=== PATIENT | male | born 1955 | race Caucasian/White ===

== ENCOUNTER 2018-04-03 18:10 | Emergency (ER) | payer OTHER ==
[~2018-04-03] VITALS: Ht 177.8 cm; Wt 122.7 kg
[~2018-04-03 18:10] MED LIST: COUMADIN5 MG PO; Combivent IH; HABITROL,NICODE21 MG TD; Mevacor PO; NORVASC10 MG PO; TRICOR PO; WELLBUTRIN SR150 MG PO; ZESTRIL,PRINIVI40 M1 PO
[2018-04-03 19:24] LABS: HEMATOCRIT 42.6 % (38.0-50.0); HEMOGLOBIN 15.1 G/DL (12.5-16.6); MCH 38.2 PG (29.0-34.0); MCHC 35.4 G/DL (30.0-36.0); MCV 107.8 FL (86-99); PLATELET COUNT 113 K/uL (156-360); RBC DIS.WIDTH-CV 13.2 % (11.8-14.6); RBC DIS.WIDTH-SD 52.6 % (39-53); RED BLOOD COUNT 3.95 M/uL (4.00-5.50)
[2018-04-03 19:32] LABS: INTER. NORMALIZED RATIO 1.8
[2018-04-03 19:34] LABS: CHLORIDE 102 mEq/L (99-109); POTASSIUM 4.6 mEq/L (3.7-5.4); SODIUM 137 mEq/L (136-147)
[2018-04-03 19:36] LABS: GLUCOSE 160 mg/dL (70-99)
[2018-04-03 19:39] LABS: CREATININE 1.1 mg/dL (0.6-1.3); GFR ESTIMATE (CALCULATED) > 59 mL/min/ (58.99-99999)
[2018-04-03 19:40] LABS: UREA NITROGEN (BUN) 23 mg/dL (9-23)
[2018-04-03 19:45] LABS: TROP-I INTERPRETATION NEGATIVE; TROPONIN-I < 0.01 ng/mL (0.0-0.30)
[2018-04-03] MEDS ORDERED: PREDNISONE50 MG PO (22:51)
[2018-04-03 23:31] VITALS: BP 149/100
== END 2018-04-03 23:31 | disposition home or self-care (01) ==
LOC: EME 18:10
PROVIDERS: Emergency Medicine
DX: J44.1 Chronic obstructive pulmonary disease with (acute) exacerbation (principal); R00.0 Tachycardia, unspecified; R94.31 Abnormal electrocardiogram [ECG] [EKG]; I25.10 Atherosclerotic heart disease of native coronary artery without angina pectoris; K76.0 Fatty (change of) liver, not elsewhere classified; I10 Essential (primary) hypertension; E78.5 Hyperlipidemia, unspecified; Z79.01 Long term (current) use of anticoagulants; Z87.39 Personal history of other diseases of the musculoskeletal system and connective tissue; Z86.69 Personal history of other diseases of the nervous system and sense organs; Z86.711 Personal history of pulmonary embolism; Z86.718 Personal history of other venous thrombosis and embolism; Z96.659 Presence of unspecified artificial knee joint; Z95.828 Presence of other vascular implants and grafts
CPT/HCPCS: 71046; 71275; 80048; 84484; 85027; 85610; 93005; 94640; 99281; 99284; J7512

== ENCOUNTER 2018-04-05 12:14 | Inpatient (IN) | payer OTHER ==
[~2018-04-05] VITALS: Ht 175.3 cm; Wt 123.9 kg
[~2018-04-05 12:14] MED LIST changes: +PREDNISONE50 MG PO
[2018-04-05 12:49] LABS: HEMATOCRIT 40.3 % (38.0-50.0); HEMOGLOBIN 14.2 G/DL (12.5-16.6); MCH 38.3 PG (29.0-34.0); MCHC 35.2 G/DL (30.0-36.0); MCV 108.6 FL (86-99); PLATELET COUNT 93 K/uL (156-360); RBC DIS.WIDTH-CV 13.5 % (11.8-14.6); RBC DIS.WIDTH-SD 53.7 % (39-53); RED BLOOD COUNT 3.71 M/uL (4.00-5.50); WHITE BLOOD COUNT 16.3 K/uL (4.1-10.2)
[2018-04-05 12:57] LABS: CHLORIDE 99 mEq/L (99-109); POTASSIUM 4.3 mEq/L (3.7-5.4); SODIUM 133 mEq/L (136-147)
[2018-04-05 12:59] LABS: GLUCOSE 176 mg/dL (70-99)
[2018-04-05 13:03] LABS: GFR ESTIMATE (CALCULATED) 47 mL/min/ (58.99-99999)
[2018-04-05 13:04] LABS: CREATININE 1.6 mg/dL (0.6-1.3); INTER. NORMALIZED RATIO 1.7; UREA NITROGEN (BUN) 46 mg/dL (9-23)
[2018-04-05 13:10] LABS: TROP-I INTERPRETATION NEGATIVE; TROPONIN-I 0.03 ng/mL (0.0-0.30)
[2018-04-05] MEDS ORDERED: WARFARIN SODIU7.5 MG PO (15:21)
[2018-04-05] MEDS ORDERED: SPIRONOLACTONE50 MG PO (15:21)
[2018-04-05] MEDS ORDERED: HYDROCODON-ACE1 EAC7 PO (15:22)
[2018-04-05] MEDS ORDERED: SIMVASTATIN40 MG PO (15:22)
[2018-04-05] MEDS ORDERED: TYLENOL REGULA325 MG PO (15:23)
[2018-04-05 18:44] LABS: FOLIC ACID (FOLATE) 8.9 NG/ML (5.0-22.0)
[2018-04-05 19:59] VITALS: BP 140/67
[2018-04-05 22:01] LABS: APPEARANCE CLEAR ((CLEAR)); BILIRUBIN NEGATIVE; BLOOD MODERATE; COLOR YELLOW ((YELLOW)); GLUCOSE (STRIP) NEGATIVE; KETONES NEGATIVE; LEUKOCYTES NEGATIVE; NITRITE NEGATIVE; PROTEIN (STRIP) NEGATIVE; SPECIFIC GRAVITY 1.016 (1.000-1.030)
[2018-04-05 22:27] LABS: WHITE BLOOD CELLS 0-5 /HPF (0-5)
[2018-04-05 22:29] LABS: BACTERIA RARE /HPF; EPITHELIAL CELLS NONE SEEN /HPF; HYALINE CASTS 0-5 /LPF; MUCUS TRACE /LPF; UCUL ADDED? NO
[2018-04-06] VITALS (7 sets, daily range): BP systolic 126–159; BP diastolic 63–77
[2018-04-06 05:53] LABS: BASOPHIL (%) 0.1 % (0-1); EOSINOPHIL (%) 0.1 % (0-5); HEMATOCRIT 33.1 % (38.0-50.0); HEMOGLOBIN 11.4 G/DL (12.5-16.6); IMMATURE GRANULOCYTE (%) 0.7 % (0.0-0.7); LYMPHOCYTE (%) 17.2 % (15-42); MCH 37.1 PG (29.0-34.0); MCHC 34.4 G/DL (30.0-36.0); MCV 107.8 FL (86-99); MONOCYTE (%) 6.9 % (3-12); MONOCYTE COUNT 0.8 K/uL (0-0.8); NEUTROPHIL COUNT 8.8 K/uL (1.8-6.4); PLATELET COUNT 87 K/uL (156-360); RBC DIS.WIDTH-CV 13.5 % (11.8-14.6); RBC DIS.WIDTH-SD 52.6 % (39-53); RED BLOOD COUNT 3.07 M/uL (4.00-5.50); WHITE BLOOD COUNT 11.7 K/uL (4.1-10.2)
[2018-04-06 06:00] LABS: ALBUMIN 3.6 G/DL (3.2-4.8); ALKALINE PHOSPHATASE 41 IU/L (3-129); ALT (GPT) 14 IU/L (3-49); AST (GOT) 27 IU/L (2-34); CHLORIDE 104 MEQ/L (99-109); CREATININE 1.2 MG/DL (0.6-1.3); GFR ESTIMATE (CALCULATED) > 59 mL/min/ (58.99-99999); GLUCOSE 151 mg/dL (70-99); POTASSIUM 4.4 MEQ/L (3.7-5.4); SODIUM 134 MEQ/L (136-147); TOTAL BILIRUBIN 1.3 MG/DL (0.0-1.0); TOTAL PROTEIN 6.5 G/DL (6.4-8.3); UREA NITROGEN (BUN) 39 mg/dL (9-23)
[2018-04-06 16:40] LABS: HEMATOCRIT 32.3 % (38.0-50.0); HEMOGLOBIN 11.3 G/DL (12.5-16.6); MCH 38.4 PG (29.0-34.0); MCV 109.9 FL (86-99); PLATELET COUNT 93 K/uL (156-360); RBC DIS.WIDTH-CV 13.7 % (11.8-14.6); RBC DIS.WIDTH-SD 54.7 % (39-53); RED BLOOD COUNT 2.94 M/uL (4.00-5.50); WHITE BLOOD COUNT 12.8 K/uL (4.1-10.2)
[2018-04-07 04:15] LABS: HEMATOCRIT 31.3 % (38.0-50.0); HEMOGLOBIN 11.2 G/DL (12.5-16.6); MCH 38.8 PG (29.0-34.0); MCHC 35.8 G/DL (30.0-36.0); MCV 108.3 FL (86-99); PLATELET COUNT 94 K/uL (156-360); RBC DIS.WIDTH-CV 13.5 % (11.8-14.6); RBC DIS.WIDTH-SD 53.5 % (39-53); RED BLOOD COUNT 2.89 M/uL (4.00-5.50); WHITE BLOOD COUNT 10.3 K/uL (4.1-10.2)
[2018-04-07 04:26] LABS: CHLORIDE 104 mEq/L (99-109); SODIUM 135 mEq/L (136-147)
[2018-04-07 04:41] LABS: CREATININE 0.8 mg/dL (0.6-1.3); GFR ESTIMATE (CALCULATED) > 59 mL/min/ (58.99-99999); GLUCOSE 106 mg/dL (70-99); UREA NITROGEN (BUN) 24 mg/dL (9-23)
[2018-04-07 04:49] VITALS: BP 145/75
[2018-04-07 08:00] VITALS: BP 143/67
[2018-04-07 11:27] VITALS: BP 127/59
[2018-04-07 16:00] VITALS: BP 148/70
[2018-04-07 19:27] VITALS: BP 141/70
[2018-04-07 23:40] VITALS: BP 142/67
[2018-04-08 03:36] VITALS: BP 127/72
[2018-04-08 06:47] LABS: HEMOGLOBIN 11.1 G/DL (12.5-16.6); MCH 37.8 PG (29.0-34.0); MCHC 34.7 G/DL (30.0-36.0); MCV 108.8 FL (86-99); RBC DIS.WIDTH-CV 13.7 % (11.8-14.6); RBC DIS.WIDTH-SD 53.3 % (39-53); RED BLOOD COUNT 2.94 M/uL (4.00-5.50); WHITE BLOOD COUNT 10.1 K/uL (4.1-10.2)
[2018-04-08 06:48] LABS: PLATELET COUNT 127 K/uL (156-360)
[2018-04-08 07:05] VITALS: BP 126/66
[2018-04-08 07:22] LABS: ALBUMIN 3.5 G/DL (3.2-4.8); ALKALINE PHOSPHATASE 40 IU/L (3-129); ALT (GPT) 20 IU/L (3-49); AST (GOT) 25 IU/L (2-34); CHLORIDE 105 MEQ/L (99-109); CREATININE 0.8 MG/DL (0.6-1.3); DIRECT BILIRUBIN 0.3 mg/dL (0.0-0.3); GFR ESTIMATE (CALCULATED) > 59 mL/min/ (58.99-99999); GLUCOSE 107 mg/dL (70-99); POTASSIUM 4.4 MEQ/L (3.7-5.4); SODIUM 137 MEQ/L (136-147); TOTAL PROTEIN 6.2 G/DL (6.4-8.3); UREA NITROGEN (BUN) 15 mg/dL (9-23)
[2018-04-08 07:23] LABS: TOTAL BILIRUBIN 0.9 MG/DL (0.0-1.0)
[2018-04-08 15:02] VITALS: BP 145/67
[2018-04-08 19:54] VITALS: BP 144/65
[2018-04-09] VITALS (7 sets, daily range): BP systolic 130–185; BP diastolic 60–71
[2018-04-09 10:50] LABS: CHLORIDE 107 MEQ/L (99-109); CREATININE 0.7 MG/DL (0.6-1.3); GFR ESTIMATE (CALCULATED) > 59 mL/min/ (58.99-99999); GLUCOSE 121 mg/dL (70-99); POTASSIUM 4.3 MEQ/L (3.7-5.4); SODIUM 140 MEQ/L (136-147); UREA NITROGEN (BUN) 15 mg/dL (9-23)
[2018-04-10 04:02] VITALS: BP 145/66
[2018-04-10 07:32] LABS: BASOPHIL (%) 0.3 % (0-1); EOSINOPHIL (%) 0.3 % (0-5); HEMOGLOBIN 12.3 G/DL (12.5-16.6); IMMATURE GRANULOCYTE (%) 1.4 % (0.0-0.7); LYMPHOCYTE (%) 27.8 % (15-42); LYMPHOCYTE COUNT 3.1 K/uL (1.0-2.8); MCHC 34.2 G/DL (30.0-36.0); MCV 111.1 FL (86-99); MONOCYTE (%) 6.2 % (3-12); MONOCYTE COUNT 0.7 K/uL (0-0.8); NEUTROPHIL COUNT 7.1 K/uL (1.8-6.4); NRBC (%) 0.3 /100 WBC (0-0); RBC DIS.WIDTH-CV 13.9 % (11.8-14.6); RBC DIS.WIDTH-SD 56.1 % (39-53); RED BLOOD COUNT 3.24 M/uL (4.00-5.50); WHITE BLOOD COUNT 11.1 K/uL (4.1-10.2)
[2018-04-10 07:47] LABS: PLATELET COUNT 169 K/uL (156-360)
[2018-04-10 07:51] VITALS: BP 142/75
[2018-04-10 08:14] LABS: ALBUMIN 3.8 G/DL (3.2-4.8); ALKALINE PHOSPHATASE 42 IU/L (3-129); ALT (GPT) 30 IU/L (3-49); AST (GOT) 29 IU/L (2-34); CHLORIDE 104 MEQ/L (99-109); CREATININE 0.8 MG/DL (0.6-1.3); GFR ESTIMATE (CALCULATED) > 59 mL/min/ (58.99-99999); GLUCOSE 104 mg/dL (70-99); POTASSIUM 4.2 MEQ/L (3.7-5.4); SODIUM 139 MEQ/L (136-147); TOTAL PROTEIN 6.5 G/DL (6.4-8.3); UREA NITROGEN (BUN) 18 mg/dL (9-23)
[2018-04-10 08:15] LABS: TOTAL BILIRUBIN 1.2 MG/DL (0.0-1.0)
[2018-04-10 11:50] VITALS: BP 148/70
[2018-04-10 13:36] LABS: APPEARANCE CLEAR ((CLEAR)); BILIRUBIN NEGATIVE; BLOOD MODERATE; COLOR YELLOW ((YELLOW)); GLUCOSE (STRIP) NEGATIVE; KETONES NEGATIVE; LEUKOCYTES NEGATIVE; NITRITE NEGATIVE; PROTEIN (STRIP) NEGATIVE; SPECIFIC GRAVITY 1.024 (1.000-1.030)
[2018-04-10 13:44] LABS: BACTERIA NONE SEEN /HPF; EPITHELIAL CELLS NONE SEEN /HPF; MUCUS TRACE /LPF; RED BLOOD CELLS 20-30 /HPF (0-5); UCUL ADDED? YES
[2018-04-10] MEDS ORDERED: ELIQUIS5 MG PO ×2 (14:05→14:06)
[2018-04-10 16:12] VITALS: BP 156/70
[2018-04-10 19:56] VITALS: BP 135/64
[2018-04-11 00:26] VITALS: BP 134/62
[2018-04-11 04:10] VITALS: BP 127/61
[2018-04-11 07:44] VITALS: BP 146/65
[2018-04-11 12:46] VITALS: BP 133/60
[2018-04-11 16:40] VITALS: BP 129/72
== END 2018-04-11 17:58 | disposition short-term general hospital (02) | DRG 299 ==
LOC: EME 12:14 → ENRESERV 14:59 → EDOF 15:16 → 5SOUTH 15:16 → ENRESERV 16:53 → 5SOUTH 18:02
PROVIDERS: Emergency Medicine; Family Medicine; Hospitalist
DX: I82.423 Acute embolism and thrombosis of iliac vein, bilateral (principal); I26.99 Other pulmonary embolism without acute cor pulmonale; I82.411 Acute embolism and thrombosis of right femoral vein; I82.441 Acute embolism and thrombosis of right tibial vein; R65.10 Systemic inflammatory response syndrome (SIRS) of non-infectious origin without acute organ dysfunction; N17.9 Acute kidney failure, unspecified; N14.1 Nephropathy induced by other drugs, medicaments and biological substances; T50.8X5A Adverse effect of diagnostic agents, initial encounter; N13.2 Hydronephrosis with renal and ureteral calculous obstruction; D61.818 Other pancytopenia; E66.9 Obesity, unspecified; Z68.41 Body mass index [BMI] 40.0-44.9, adult; R79.1 Abnormal coagulation profile; E78.5 Hyperlipidemia, unspecified; I10 Essential (primary) hypertension; I87.8 Other specified disorders of veins; I71.4 Abdominal aortic aneurysm, without rupture; J44.1 Chronic obstructive pulmonary disease with (acute) exacerbation; J84.10 Pulmonary fibrosis, unspecified; M17.0 Bilateral primary osteoarthritis of knee; R60.0 Localized edema; F17.210 Nicotine dependence, cigarettes, uncomplicated; G89.29 Other chronic pain; M54.5 Low back pain; Z79.01 Long term (current) use of anticoagulants; Z86.711 Personal history of pulmonary embolism; Z86.718 Personal history of other venous thrombosis and embolism; Z96.659 Presence of unspecified artificial knee joint; Z71.6 Tobacco abuse counseling; Z95.828 Presence of other vascular implants and grafts; Z88.5 Allergy status to narcotic agent; Z88.6 Allergy status to analgesic agent; Z91.14 Patient's other noncompliance with medication regimen
CPT/HCPCS: 71046; 71275; 74174; 78582; 80048; 80053; 80076; 81003; 82607; 82746; 83605; 83880; 83921 90; 84484; 85025; 85027; 85610; 85730; 87040; 87086; 93005; 93306; 93970; 93976; 94010; 94640; 99202; 99281; 99284; 99285; A9540; A9567; J1650; J1940; J2543; J3370; J7030; J7050; J7512